=== PATIENT | female | born 1995 | race Two or more races ===

== ENCOUNTER 2023-08-24 13:38 | Emergency (ER) | payer OTHER ==
[~2023-08-24] VITALS: Ht 170.2 cm; Wt 91.6 kg
[2023-08-24] MEDS ORDERED: PRENA1 TRUE CO1 EACH (13:58)
[2023-08-24 14:55] LABS: HEMATOCRIT 41.4 % (36.0-45.00); HEMOGLOBIN 14.2 g/dL (12.0-15.00); MEAN CELL VOLUME 87.5 fL (80.00-100.00); MEAN CORPUSCULAR HGB CONC 34.4 g/dl (32.0-36.0); PLATELET COUNT 247 K/uL (150-450); RED BLOOD COUNT 4.73 M/uL (4.00-6.00); RED CELL DISTRIBUTION WIDTH 14.6 % (11.5-14.5)
== END 2023-08-24 17:18 | disposition home or self-care (01) ==
LOC: ER 13:39
PROVIDERS: Surgery
DX: O20.9 Hemorrhage in early pregnancy, unspecified (principal); Z3A.14 14 weeks gestation of pregnancy